=== PATIENT | female | born 1965 | race Caucasian/White ===

== ENCOUNTER 2019-01-16 21:08 | Inpatient (IN) | payer MEDICARE, OTHER ==
[~2019-01-16] VITALS: Ht 154.9 cm; Wt 73.5 kg
[2019-01-16 23:00] VITALS: BP 122/67; PULSE 113; RESP 18
[2019-01-16] MEDS ORDERED: METF500T24 PO (23:30)
[2019-01-16] MEDS ORDERED: LOSA100T15 PO (23:30)
[2019-01-16] MEDS ORDERED: GLIP10TA14 PO (23:30)
[2019-01-16] MEDS ORDERED: ATOR40TA68 PO (23:30)
[2019-01-16] MEDS ORDERED: IBUP-1541 PO (23:32)
--- NOTE | 2019-01-16 23:47 | HP ---
Date/Time of Note Date/Time of Note DATE: 01/16/19 TIME: 23:47 Assessment/Plan VTE Prophylaxis Pharmacological prophylaxis: heparin Assessment/Plan Assessment/Plan 1. Sepsis, secondary to UTI: Per outside records -IV fluid, IV antibiotic -Follow-up culture results 2. Type 2 diabetes with hyperglycemia -Check A1c -Adjust insulin as needed while in-house 3. Hypertension: BP within goal. Continue home meds 4. Dyslipidemia: Continue statin HPI/ROS Admit Date/Time Admit Date/Time Jan 16, 2019 at 22:28 Hx of Present Illness This is a 53-year-old female with a history of hypertension, type 2 diabetes, dyslipidemia who initially presented on outside hospital complaining of cough, shortness of breath and urinary symptoms. She also reported mild intermittent headache mostly localized in the occipital area. She also states she had pain in her right thigh which has resolved. Patient was diagnosed with sepsis from UTI and transferred to [facility] for insurance reasons. PMH/Family/Social Past Medical History Past Surgical History Past Surgical Hx: other (see hpi) Family History Significant Family History: no pertinent family hx Social History Alcohol Use: other Smoking Status: Unknown if ever smoked Drug Use: other Medications Current Medications Sodium Chloride 1,000 ml @ 100 mls/hr Q10H IV ; Start 01/16/19 at 23:41; Stop 01/17/19 at 23:00; Status UNV IV Flush (NS 3 ml) 3 ml PER PROTOCOL IV ; Start 01/17/19 at 00:00; Status UNV Ondansetron HCl (Zofran Inj) 4 mg Q6H PRN IV NAUSEA/VOMITING; Start 01/17/19 at 00:00; Status UNV Acetaminophen (Tylenol Tab) 650 mg Q6H PRN PO .PAIN 1-3 OR TEMP; Start 01/17/19 at 00:00; Status UNV Heparin Sodium (Porcine) (Heparin (5000 Units/1ml)) 5,000 unit Q12 SC ; Start 01/17/19 at 09:00; Status UNV Atorvastatin Calcium (Lipitor) 20 mg QHS PO ; Start 01/17/19 at 21:00; Status UNV Losartan Potassium (Cozaar) 100 mg DAILY PO ; Start 01/17/19 at 09:00; Status UNV Metformin HCl (Glucophage) 500 mg WITH BREAKFAST DINNE PO ; Start 01/17/19 at 08:00; Status UNV Coded Allergies: No Known Allergy (Unverified , 01/18/19) Exam/Review of Systems Exam Constitutional: alert, oriented, well developed Head: normocephalic, atraumatic Eyes: EOMI, PERRL Respiratory: clear to auscultation, normal air movement Cardiovascular: regular rate and rhythm, nl pulses Gastrointestinal: soft Extremities: normal pulses JANES MCKEE MD Jan 16, 2019 23:47
[2019-01-17] MEDS ORDERED: ACETAMINOPHEN 325 MG TAB PO PRN
[2019-01-17] MEDS ORDERED: NACL 0.9% 3 ML SYG IV SCH
[2019-01-17] MEDS ORDERED: ONDANSETRON 4 MG INJ IV PRN
[2019-01-17] MEDS ORDERED: DEXTROSE 50% 50 ML SYRINGE IV PRN ×2 (00:30)
[2019-01-17] MEDS ORDERED: GLUCAGON 1 MG INJ IM PRN (00:30)
[2019-01-17] MEDS ORDERED: GLUCOSE GEL 15 GRAM TUBE PO PRN ×2 (00:30)
[2019-01-17] MEDS ORDERED: GLUCOSE GEL 15 GRAM TUBE BUCCAL PRN (00:30)
[2019-01-17] MEDS: SOD CHLORIDE 0.9% 1,000 ML IV SCH ×3 (01:08→19:41)
[2019-01-17] MEDS ORDERED: INSULIN ASPART [NOVOLOG] 3 ML PEN SC ONE (02:00)
[2019-01-17] MEDS: ACCU-CHEK XX SCH (02:00)
[2019-01-17 02:40] VITALS: BP 103/53; PULSE 103; RESP 18
[2019-01-17 08:28] VITALS: BP 110/67; PULSE 88; RESP 18
[2019-01-17] MEDS: metFORMIN 500 MG TAB PO SCH ×2 (08:37→18:05)
[2019-01-17] MEDS: INSULIN ASPART [NOVOLOG] 3 ML PEN SC SCH ×5 (08:39→20:53)
[2019-01-17] MEDS: LOSARTAN 50 MG TAB PO SCH (09:00)
[2019-01-17] MEDS: HEPARIN 5,000 UNIT/1 ML VIAL SC SCH ×2 (13:13→20:54)
--- NOTE | 2019-01-17 14:10 | PN ---
Date/Time of Note Date/Time of Note DATE: 01/17/19 TIME: 14:08 Assessment/Plan VTE Prophylaxis SCD contraindicated: low risk/ambulating Pharmacological prophylaxis: LMWH Lines/Catheters IV Catheter Type (from Nrs): Peripheral IV Assessment/Plan Hospital Course Assessment and plan 1. Respiratory illness of viral versus bacterial. Stable continue empiric therapy 2. Diabetes out of control start insulin; diabetic education 3. Metabolic syndrome Subjective: Cough dyspnea fever chills improved. No ill contacts. I do not b geo received her flu shot. Does not take insulin. Only on p.o. therapy. I believe everyone at home as coughs and colds. Nobody hospitalized. Objective: Vital signs stable fever improved Physical exam No pallor Regular Diminished essentially clear no tachypnea Bowel sounds present nontender nd no RRG; no rebound guarding overweight No edema Result Diagram: 01/17/19 0547 01/17/19 0547 Results 24hrs Laboratory Tests Test 01/17/19 01:03 01/17/19 03:06 01/17/19 05:45 01/17/19 05:47 Bedside Glucose 316 H 293 H Urine Color YELLOW Urine Clarity CLEAR Urine pH 5.0 Urine Specific [place] 1.010 Urine Ketones 1+ H Urine Nitrite NEGATIVE Urine Bilirubin NEGATIVE Urine Urobilinogen NEGATIVE Urine Leukocyte Esterase NEGATIVE Urine Hemoglobin NEGATIVE Urine Glucose 3+ H Urine Total Protein NEGATIVE White Blood Count 9.4 Red Blood Count 4.49 Hemoglobin 12.4 Hematocrit 38.8 Mean Corpuscular Volume 86.4 Mean Corpuscular 27.6 L Hemoglobin Mean Corpuscular 32.0 Hemoglobin Concent Red Cell Distribution 12.1 Width Platelet Count 178 Mean Platelet Volume 12.7 H Immature Granulocytes % 0.700 H Neutrophils % 71.3 Lymphocytes % 13.8 L Monocytes % 7.6 Eosinophils % 6.3 Basophils % 0.3 Nucleated Red Blood 0.0 Cells % Immature Granulocytes # 0.070 H Neutrophils # 6.7 Lymphocytes # 1.3 Monocytes # 0.7 Eosinophils # 0.6 H Basophils # 0.0 Nucleated Red Blood 0.0 Cells # Sodium Level 138 Potassium Level 3.9 Chloride Level 101 Carbon Dioxide Level 27 Anion Gap 10 Blood Urea Nitrogen 9 Creatinine 0.55 Est Glomerular Filtrat > 60 Rate mL/min Glucose Level 211 Hemoglobin A1c 13.0 H Lactic Acid Level 1.7 Calcium Level 8.8 Phosphorus Level 5.0 H Magnesium Level 1.9 Total Bilirubin 0.3 Direct Bilirubin 0.00 Indirect Bilirubin 0.3 Aspartate Amino 197 H Transf (AST/SGOT) Alanine 187 H Aminotransferase (ALT/SG PT) Alkaline Phosphatase 126 H Total Protein 6.4 Albumin 3.7 Globulin 2.70 Albumin/Globulin Ratio 1.37 Test 01/17/19 08:35 01/17/19 13:00 Bedside Glucose 245 H 215 Exam/Review of Systems Exam Vitals Vital Signs Date Temp Pulse Resp B/P (MAP) Pulse Ox O2 O2 Flow FiO2 Time Delivery Rate 01/17/19 98.3 88 18 110/67 98 Room Air 08:28 (81) Intake and Output 01/16/19 01/16/19 01/17/19 1515:00 23:00 07:00 IntakeIntake Total 250 ml BalanceBalance 250 ml Results Results 24hrs Laboratory Tests Test 01/17/19 01:03 01/17/19 03:06 01/17/19 05:45 01/17/19 05:47 Bedside Glucose 316 H 293 H Urine Color YELLOW Urine Clarity CLEAR Urine pH 5.0 Urine Specific [place] 1.010 Urine Ketones 1+ H Urine Nitrite NEGATIVE Urine Bilirubin NEGATIVE Urine Urobilinogen NEGATIVE Urine Leukocyte Esterase NEGATIVE Urine Hemoglobin NEGATIVE Urine Glucose 3+ H Urine Total Protein NEGATIVE White Blood Count 9.4 Red Blood Count 4.49 Hemoglobin 12.4 Hematocrit 38.8 Mean Corpuscular Volume 86.4 Mean Corpuscular 27.6 L Hemoglobin Mean Corpuscular 32.0 Hemoglobin Concent Red Cell Distribution 12.1 Width Platelet Count 178 Mean Platelet Volume 12.7 H Immature Granulocytes % 0.700 H Neutrophils % 71.3 Lymphocytes % 13.8 L Monocytes % 7.6 Eosinophils % 6.3 Basophils % 0.3 Nucleated Red Blood 0.0 Cells % Immature Granulocytes # 0.070 H Neutrophils # 6.7 Lymphocytes # 1.3 Monocytes # 0.7 Eosinophils # 0.6 H Basophils # 0.0 Nucleated Red Blood 0.0 Cells # Sodium Level 138 Potassium Level 3.9 Chloride Level 101 Carbon Dioxide Level 27 Anion Gap 10 Blood Urea Nitrogen 9 Creatinine 0.55 Est Glomerular Filtrat > 60 Rate mL/min Glucose Level 211 Hemoglobin A1c 13.0 H Lactic Acid Level 1.7 Calcium Level 8.8 Phosphorus Level 5.0 H Magnesium Level 1.9 Total Bilirubin 0.3 Direct Bilirubin 0.00 Indirect Bilirubin 0.3 Aspartate Amino 197 H Transf (AST/SGOT) Alanine 187 H Aminotransferase (ALT/SG PT) Alkaline Phosphatase 126 H Total Protein 6.4 Albumin 3.7 Globulin 2.70 Albumin/Globulin Ratio 1.37 Test 01/17/19 08:35 01/17/19 13:00 Bedside Glucose 245 H 215 Medications Medication Current Medications Sodium Chloride 1,000 ml @ 100 mls/hr Q10H IV Last administered on 01/17/19at 01:08; Admin Dose 100 MLS/HR; Start 01/16/19 at 23:41; Stop 01/17/19 at 23:00 IV Flush (NS 3 ml) 3 ml PER PROTOCOL IV ; Start 01/17/19 at 00:00 Ondansetron HCl (Zofran Inj) 4 mg Q6H PRN IV NAUSEA/VOMITING; Start 01/17/19 at 00:00 Acetaminophen (Tylenol Tab) 650 mg Q6H PRN PO .PAIN 1-3 OR TEMP Last administered on 01/17/19at 01:08; Admin Dose 650 MG; Start 01/17/19 at 00:00 Heparin Sodium (Porcine) (Heparin (5000 Units/1ml)) 5,000 unit Q12 SC Last administered on 01/17/19at 13:13; Admin Dose 5,000 UNIT; Start 01/17/19 at 09:00 Atorvastatin Calcium (Lipitor) 20 mg QHS PO ; Start 01/17/19 at 21:00 Losartan Potassium (Cozaar) 100 mg DAILY PO Last administered on 01/17/19at 09:00; Admin Dose 100 MG; Start 01/17/19 at 09:00 Metformin HCl (Glucophage) 500 mg WITH BREAKFAST DINNE PO Last administered on 01/17/19at 08:37; Admin Dose 500 MG; Start 01/17/19 at 08:00 Diagnostic Test (Pha) (Accu-Chek) 1 ea 02 XX ; Start 01/17/19 at 02:00 Insulin Aspart (Novolog Insulin Pen) NOVOLOG *MILD* ALGORITHM WITH MEALS BEDTIME SC Last administered on 01/17/19at 13:11; Admin Dose 2 UNIT; Start 01/17/19 at 08:00 Miscellaneous Information 1 ea NOTE XX ; Start 01/17/19 at 00:30 Glucose (Glutose) 15 gm Q15M PRN PO DECREASED GLUCOSE; Start 01/17/19 at 00:30 Glucose (Glutose) 22.5 gm Q15M PRN PO DECREASED GLUCOSE; Start 01/17/19 at 00:30 Dextrose (D50w Syringe) 25 ml Q15M PRN IV DECREASED GLUCOSE; Start 01/17/19 at 00:30 Dextrose (D50w Syringe) 50 ml Q15M PRN IV DECREASED GLUCOSE; Start 01/17/19 at 00:30 Glucagon (Glucagen) 1 mg Q15M PRN IM DECREASED GLUCOSE; Start 01/17/19 at 00:30 Glucose (Glutose) 15 gm Q15M PRN BUCCAL DECREASED GLUCOSE; Start 01/17/19 at 00:30 Influenza Virus Vaccine Quadrival (Fluzone) 0.5 ml ONCE ONCE IM* ; Start 01/18/19 at 10:00; Stop 01/18/19 at 10:01 LARRY GONZALEZ MD Jan 17, 2019 14:10
[2019-01-17] MEDS ORDERED: ALBUTEROL HFA 8 GM INHALER INH PRN (14:30)
[2019-01-17] MEDS: AZITHROMYCIN 250 MG TAB PO SCH (15:19)
[2019-01-17] MEDS: OSELTAMIVIR 75 MG CAP PO SCH ×2 (15:20→20:55)
[2019-01-17 15:23] VITALS: BP 130/76; PULSE 89; RESP 18
[2019-01-17] MEDS ORDERED: INSULIN LISPRO 100 UNIT/ML VIAL SC SCH (17:35)
[2019-01-17 20:00] VITALS: BP 115/70; PULSE 91; RESP 19
[2019-01-17] MEDS ORDERED: INSULIN GLARGINE [LANTus] (100 UNITS/ML) SYG SC SCH (20:00)
[2019-01-17] MEDS: GUAIFENESIN/DM 5ML CUP PO PRN (20:55)
[2019-01-17] MEDS ORDERED: ATORVASTATIN 40 MG TAB PO SCH (21:00)
[2019-01-18] MEDS: ACCU-CHEK XX SCH (01:42)
[2019-01-18 02:23] VITALS: BP 109/64; PULSE 79; RESP 18
[2019-01-18] MEDS: GUAIFENESIN/DM 5ML CUP PO PRN (05:48)
[2019-01-18 07:55] VITALS: BP 125/73; PULSE 84; RESP 18
[2019-01-18] MEDS: OSELTAMIVIR 75 MG CAP PO SCH (08:03)
[2019-01-18] MEDS: AZITHROMYCIN 250 MG TAB PO SCH (08:03)
[2019-01-18] MEDS: metFORMIN 500 MG TAB PO SCH ×2 (08:04→17:33)
[2019-01-18] MEDS: INSULIN ASPART [NOVOLOG] 3 ML PEN SC SCH ×5 (08:07→17:35)
[2019-01-18] MEDS: LOSARTAN 50 MG TAB PO SCH (08:08)
[2019-01-18] MEDS: HEPARIN 5,000 UNIT/1 ML VIAL SC SCH (08:08)
[2019-01-18] MEDS ORDERED: QUETIAPINE 25 MG TAB PO SCH (10:00)
[2019-01-18] MEDS ORDERED: LORAZEPAM 0.5 MG TAB PO PRN (11:30)
[2019-01-18] MEDS ORDERED: LORAZEPAM 1 MG TAB PO STA (11:36)
--- NOTE | 2019-01-18 11:38 | PSY ---
Date/Time of Note Date/Time of Note DATE: 01/18/19 TIME: 11:31 Psychiatric Subjective Eval Consent Pt consented to telemedicine: No Subjective Evaluation Patient location: inpatient Hospitalization: other Family History Patient is a 53-year-old female currently on the medical unit for upper respiratory infection and blood sugar out of control. On a [id number] evaluation patient is Bulgarian-speaking only translation done by staff she denies hearing voices states stares blankly mumbles to herself responding to internal stimuli patient states she is on the a psychiatrist but unable to state what her symptoms she has poor impulse control poor coping skills. Explained risk and benefits of antipsychotic however patient is not able to verbalize understanding. Allergies: Coded Allergies: No Known Allergy (Unverified , 01/18/19) Substance Abuse Substance abuse history: No Prior substance abuse treatmen: No Social History Marital status: other DPA/Conservatorship: No Psychiatric Objective Eval Review of Systems: Review of Systems: Not Applicable Physical Examination: Sleep: Adequate Appetite: Decreased Energy: Adequate Interest: Adequate Mental Status Examination: Appearance: Poor Hygiene Eye Contact: Poor Behavior: Suspicious, Guarded Speech: Clear AFFECT: Constricted Though Process: Linear Orientation: x4 Cognition: Alert Insight: Severe Judgement: Severe Attention Span: Distractible Laboratory Results Laboratory Tests Test 01/17/19 01:03 01/17/19 03:06 01/17/19 05:45 01/17/19 05:47 Bedside Glucose 316 mg/dL 293 mg/dL Urine Color YELLOW Urine Clarity CLEAR Urine pH 5.0 Urine Specific 1.010 [place] Urine Ketones 1+ mg/dL Urine Nitrite NEGATIVE mg/dL Urine Bilirubin NEGATIVE mg/dL Urine Urobilinogen NEGATIVE mg/dL Urine Leukocyte NEGATIVE [place]/ul Esterase Urine Hemoglobin NEGATIVE mg/dL Urine Glucose 3+ mg/dL Urine Total Protein NEGATIVE mg/dl Serum HCG, NEGATIVE Qualitative White Blood Count 9.4 10^3/ul Red Blood Count 4.49 10^6/ul Hemoglobin 12.4 g/dl Hematocrit 38.8 % Mean Corpuscular 86.4 fl Volume Mean Corpuscular 27.6 pg Hemoglobin Mean Corpuscular 32.0 g/dl Hemoglobin Concent Red Cell 12.1 % Distribution Width Platelet Count 178 10^3/UL Mean Platelet 12.7 fl Volume Immature 0.700 % Granulocytes % Neutrophils % 71.3 % Lymphocytes % 13.8 % Monocytes % 7.6 % Eosinophils % 6.3 % Basophils % 0.3 % Nucleated Red Blood 0.0 /100WBC Cells % Immature 0.070 10^3/ul Granulocytes # Neutrophils # 6.7 10^3/ul Lymphocytes # 1.3 10^3/ul Monocytes # 0.7 10^3/ul Eosinophils # 0.6 10^3/ul Basophils # 0.0 10^3/ul Nucleated Red Blood 0.0 10^3/ul Cells # Sodium Level 138 mmol/L Potassium Level 3.9 mmol/L Chloride Level 101 mmol/L Carbon Dioxide 27 mmol/L Level Anion Gap 10 Blood Urea Nitrogen 9 mg/dl Creatinine 0.55 mg/dl Est Glomerular > 60 mL/min Filtrat Rate mL/min Glucose Level 211 mg/dl Hemoglobin A1c 13.0 % Lactic Acid Level 1.7 mmol/L Calcium Level 8.8 mg/dl Phosphorus Level 5.0 mg/dl Magnesium Level 1.9 mg/dl Total Bilirubin 0.3 mg/dl Direct Bilirubin 0.00 mg/dl Indirect Bilirubin 0.3 mg/dl Aspartate Amino 197 IU/L Transf (AST/SGOT) Alanine 187 IU/L Aminotransferase (A LT/SGPT) Alkaline 126 IU/L Phosphatase Total Protein 6.4 g/dl Albumin 3.7 g/dl Globulin 2.70 g/dl Albumin/Globulin 1.37 Ratio Test 01/17/19 08:35 01/17/19 13:00 01/17/19 18:04 01/17/19 20:46 Bedside Glucose 245 mg/dL 215 mg/dL 260 mg/dL 370 mg/dL Test 01/18/19 02:12 01/18/19 04:40 01/18/19 04:45 01/18/19 08:04 Bedside Glucose 295 mg/dL 256 mg/dL Serum HCG, NEGATIVE Qualitative White Blood Count 6.4 10^3/ul Red Blood Count 4.39 10^6/ul Hemoglobin 12.0 g/dl Hematocrit 38.2 % Mean Corpuscular 87.0 fl Volume Mean Corpuscular 27.3 pg Hemoglobin Mean Corpuscular 31.4 g/dl Hemoglobin Concent Red Cell 12.3 % Distribution Width Platelet Count 141 10^3/UL Mean Platelet 13.7 fl Volume Immature 0.900 % Granulocytes % Neutrophils % 42.7 % Lymphocytes % 28.7 % Monocytes % 9.2 % Eosinophils % 18.2 % Basophils % 0.3 % Nucleated Red Blood 0.0 /100WBC Cells % Immature 0.060 10^3/ul Granulocytes # Neutrophils # 2.8 10^3/ul Lymphocytes # 1.9 10^3/ul Monocytes # 0.6 10^3/ul Eosinophils # 1.2 10^3/ul Basophils # 0.0 10^3/ul Nucleated Red Blood 0.0 10^3/ul Cells # Prothrombin Time 12.4 Sec Prothrombin Time 1.0 Ratio INR International 0.91 Normalized Ratio Sodium Level 138 mmol/L Potassium Level 4.2 mmol/L Chloride Level 103 mmol/L Carbon Dioxide 26 mmol/L Level Anion Gap 9 Blood Urea Nitrogen 13 mg/dl Creatinine 0.55 mg/dl Est Glomerular > 60 mL/min Filtrat Rate mL/min Glucose Level 268 mg/dl Calcium Level 9.2 mg/dl Magnesium Level 2.0 mg/dl Total Bilirubin 0.2 mg/dl Direct Bilirubin 0.00 mg/dl Indirect Bilirubin 0.2 mg/dl Aspartate Amino 55 IU/L Transf (AST/SGOT) Alanine 117 IU/L Aminotransferase (A LT/SGPT) Alkaline 120 IU/L Phosphatase Total Protein 6.4 g/dl Albumin 3.7 g/dl Globulin 2.70 g/dl Albumin/Globulin 1.37 Ratio Thyroid Stimulating 2.090 MIU/L Hormone (TSH) Hepatitis B Surface NEGATIVE Antigen Hepatitis B Core NEGATIVE Total Antibody Hepatitis C NEGATIVE Antibody Assessment and Plan Recommendation/Plan Medication Management Recommendation is Risperdal 1 mg twice a day, Multiple antipsychotics: No Discharge Disposition: Other Legal Status: Voluntary (Patient does not meets criteria for 5150 hold) DESTIN THOMASON NP Jan 18, 2019 11:37
[2019-01-18] MEDS ORDERED: LURA60TA PO (12:38)
[2019-01-18 13:56] VITALS: BP 99/61; PULSE 97; RESP 17
[2019-01-18 14:37] VITALS: Ht 154.9 cm; Wt 73.5 kg
--- NOTE | 2019-01-18 15:13 | PDOCDIS ---
Discharge Instructions CONDITION [id number] Patient Condition: [id number] Stable HOME CARE INSTRUCTIONS: [id number] Diet Instructions: [id number] Activity Restrictions: [id number] Slowly Increase Activity Do not Drive FOLLOW UP/APPOINTMENTS Follow-up Plan appt primary 1wk behavioral health 1wk diabetic education referral placed LARRY GONZALEZ MD Jan 18, 2019 15:13
[2019-01-18] MEDS ORDERED: NOVO3I SC (15:18)
[2019-01-18] MEDS ORDERED: OSEL75CA16 PO (15:18)
[2019-01-18] MEDS ORDERED: Insulin Glargine SC (15:18)
[2019-01-18] MEDS ORDERED: AZIT250T13 PO (15:18)
[2019-01-18] MEDS ORDERED: ALBU18HF INH (15:18)
[2019-01-18] MEDS ORDERED: GUAI120S26 PO (15:18)
[2019-01-18] MEDS ORDERED: RISP-7 PO (15:18)
[2019-01-18] MEDS ORDERED: ACET325T33 PO (15:18)
--- NOTE | 2019-01-18 15:38 | DS ---
Date/Time of Note Date/Time of Note DATE: 01/18/19 TIME: 15:35 Discharge Summary Admission/Discharge Info Admit Date/Time Jan 16, 2019 at 22:28 Discharge Date/Time Patient Condition: Stable Procedures Abdominal ultrasound IMPRESSION: Hepatomegaly with diffuse fatty liver. Status post cholecystectomy. Hx of Present Illness 53-year-old female admitted with shortness of breath. Fever. Hospital Course Hospitalist coverage/hospital course -Cough dyspnea fever chills. Presently improved. No ill contacts. I do not believe received her flu shot. Does not take insulin. Only on po's. I believe everyone at home as coughs and colds. Nobody hospitalized. Treated for bronc hitis. Stable and fit for discharge. We will asked her to visit primary in follow-up. Spoke with daughter. Diabetes out of control. 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 I will start insulin. I asked patient/family to have her visit with behavioral health and follow-up additionally. Assessment and plan 1. Respiratory illness of viral versus bacterial. Stable continue empiricTamiflu/ azithromycin. Stable discharge therapy 2. Diabetes out of control started insulin; diabetic education 3. Metabolic syndrome 4. Psychosis not otherwise specified. Seen by behavioral health. Started Risperdal. Home Meds Active Scripts Risperidone* (Risperdal*) 1 Mg Tablet, 1 MG PO BID for 14 Days, #30 TAB Prov:LARRY GONZALEZ MD 01/18/19 [Insulin Glargine] 100 UNITS/ML SOLN No Conflict Check, 45 UNITS SC DAILY@2000 for 14 Days, #14 Prov:LARRY GONZALEZ MD 01/18/19 Insulin Aspart* (Novolog Insulin Pen*) 100 Unit/Ml Soln, 15 UNIT SC WITH MEALS for 10 Days, #30 Prov:LARRY GONZALEZ MD 01/18/19 Skqletqoped-T-Wxacztaomt Hb* (Guaifenesin* DM Syrup) 120 Ml Syrup, 10 ML PO Q4H PRN for COUGH for 10 Days Prov:LARRY GONZALEZ MD 01/18/19 Acetaminophen* (Tylenol*) 325 Mg Tablet, 650 MG PO Q6H PRN for .PAIN 1-3 OR TEMP for 1 Day, TAB Prov:LARRY GONZALEZ MD 01/18/19 Albuterol Sulfate* (Ventolin HFA*) 18 Gm Hfa.aer.ad, 2 PUFF INH Q6H RESP THERAPY PRN for SHORTNESS OF BREATH for 10 Days, #1 Prov:LARRY GONZALEZ MD 01/18/19 Oseltamivir Phosphate (Oseltamivir Phosphate) 75 Mg Capsule, 75 MG PO BID for 4 Days, #8 CAP Prov:LARRY GONZALEZ MD 01/18/19 Azithromycin* (Azithromycin*) 250 Mg Tablet, 500 MG PO DAILY for 4 Days, #4 TAB Prov:LARRY GONZALEZ MD 01/18/19 Reported Medications Lurasidone Hcl (LATUDA) 60 Mg Tablet, 60 MG PO DAILY, #30 TAB 01/18/19 Ibuprofen* (Ibuprofen*) 400 Mg Tablet, 400 MG PO Q6H PRN for PAIN, TAB 01/16/19 Losartan Potassium* (Losartan Potassium*) 100 Mg Tablet, 100 MG PO DAILY, TAB 01/16/19 Metformin Hcl* (Metformin Hcl*) 500 Mg Tablet, 500 MG PO WITH BREAKFAST DINNE, #60 TAB 01/16/19 Discontinued Reported Medications Atorvastatin* (Atorvastatin*) 40 Mg Tablet, 20 MG PO QHS, #30 TAB 01/16/19 Glipizide* (Glipizide*) 10 Mg Tablet, 10 MG PO AC BREAKFAST, TAB 01/16/19 Follow-up Plan appt primary 1wk behavioral health 1wk diabetic education referral placed Primary Care Provider Care Physician No Primary Time spent on discharge: > 30 minutes Pending Labs Laboratory Tests Test 01/17/19 18:04 01/17/19 20:46 01/18/19 02:12 01/18/19 04:40 Bedside 260 370 295 Glucose mg/dL (70-220) mg/dL (70-220) mg/dL (70-220) Serum HCG, NEGATIVE (NEGA Qualitative TIVE) Test 01/18/19 04:45 01/18/19 08:04 01/18/19 12:26 White Blood 6.4 Count 10^3/ul (4.8-10 .8) Red Blood 4.39 Count 10^6/ul (4.20-5 .40) Hemoglobin 12.0 g/dl (12.0-16.0 ) Hematocrit 38.2 % (37.0-47.0) Mean 87.0 Corpuscular fl (82.0-101.0) Volume Mean 27.3 Corpuscular pg (29.0-33.0) Hemoglobin Mean 31.4 Corpuscular g/dl (32.0-37.0 Hemoglobin Conc ) ent Red Cell 12.3 Distribution % (11.5-14.5) Width Platelet Count 141 10^3/UL (140-41 5) Mean Platelet 13.7 Volume fl (7.4-10.4) Immature 0.900 Granulocytes % % (0.001-0.429) Neutrophils % 42.7 % (39.0-77.0) Lymphocytes % 28.7 % (15.0-51.0) Monocytes % 9.2 % (0.0-11.0) Eosinophils % 18.2 % (0.0-7.0) Basophils % 0.3 % (0.0-2.0) Nucleated Red 0.0 Blood Cells % /100WBC (0.0-0. 0) Immature 0.060 Granulocytes # 10^3/ul (0.0-0. 031) Neutrophils # 2.8 10^3/ul (1.6-7. 5) Lymphocytes # 1.9 10^3/ul (0.8-2. 9) Monocytes # 0.6 10^3/ul (0.3-0. 9) Eosinophils # 1.2 10^3/ul (0.0-0. 5) Basophils # 0.0 10^3/ul (0.0-0. 1) Nucleated Red 0.0 Blood Cells # 10^3/ul (0.0-0. 0) Prothrombin 12.4 Time Sec (11.9-14.9) Prothrombin 1.0 Time Ratio INR 0.91 International Normalized Rati o Sodium Level 138 mmol/L (135-144 ) Potassium 4.2 Level mmol/L (3.5-5.1 ) Chloride Level 103 mmol/L (97-110) Carbon Dioxide 26 Level mmol/L (21-31) Anion Gap 9 (5-13) Blood Urea 13 mg/dl (7-20) Nitrogen Creatinine 0.55 mg/dl (0.44-1.0 0) Est Glomerular > 60 Filtrat mL/min (>60) Rate mL/min Glucose Level 268 mg/dl (70-220) Calcium Level 9.2 mg/dl (8.4-10.2 ) Magnesium 2.0 Level mg/dl (1.7-2.5) Total 0.2 Bilirubin mg/dl (0.2-1.3) Direct 0.00 Bilirubin mg/dl (0.00-0.2 0) Indirect 0.2 Bilirubin mg/dl (0-1.1) Aspartate Amino 55 IU/L (15-46) Transf (AST/SGO T) Alanine 117 Aminotransferas IU/L (13-69) e (ALT/SGPT) Alkaline 120 Phosphatase IU/L (42-121) Total Protein 6.4 g/dl (6.1-8.1) Albumin 3.7 g/dl (3.3-4.9) Globulin 2.70 g/dl (1.3-3.2) Albumin/Globuli 1.37 n Ratio Thyroid 2.090 Stimulating MIU/L (0.465-4. Hormone (TSH) 680) Hepatitis B NEGATIVE (NEGAT Surface PAVEL) Antigen Hepatitis B NEGATIVE (NEGAT Core PAVEL) Total Antibody Hepatitis C NEGATIVE (NEGAT Antibody PAVEL) Bedside 256 245 Glucose mg/dL (70-220) mg/dL (70-220) Microbiology Date/Time Source Procedure Growth Status 01/17/19 22:25 Nasopharyngeal Influenza Types A,B Direct EIA - Final Complete LARRY GONZALEZ MD Jan 18, 2019 15:38
[2019-01-18] MEDS ORDERED: INSULIN ASPART [NOVOLOG] 3 ML PEN SC SCH (17:35)
[2019-01-18] MEDS ORDERED: INSULIN GLARGINE [LANTus] (100 UNITS/ML) SYG SC SCH (20:00)
== END 2019-01-18 18:20 | disposition home or self-care (01) | DRG 206 ==
LOC: PP2 22:28
PROVIDERS: ADMIT Internal Medicine; ATTEND Internal Medicine
DX: J98.9 Respiratory disorder, unspecified (principal); A49.9 Bacterial infection, unspecified; E11.9 Type 2 diabetes mellitus without complications; Z79.4 Long term (current) use of insulin; E88.81 Metabolic syndrome and other insulin resistance; F29 Unspecified psychosis not due to a substance or known physiological condition
CPT/HCPCS: 76705; 80053; 81003; 82962; 83036; 83605; 83735; 84100; 84443; 84703; 85025; 85610; 86704; 86709; 86803; 87086; 87340; 87400; 90686; J1644; J1815; J7030